=== PATIENT | female | born 1940 | race Caucasian/White ===

== ENCOUNTER 2021-09-21 08:00 | Day surgery (SDC) | payer BC, SELFPAY ==
[2021-09-14 15:43] VITALS: BMI 19.1
--- NOTE | 2021-09-17 12:54 | MHC.SHP ---
Pre-Procedural Eval Section A Date of Service: 09/17/21 The patient is an INPATIENT: No Changes since office visit: No Cold of Flu in the past 2 weeks, No New Medical Problems, No Changes in Medication and No Patient answered all questions The History & Physical has been completed within 30 days and I have reviewed it.: Yes Section B Chief Complaint: cataract right eye Allergies: Allergies Allergy/AdvReac Type Severity Reaction Status Date / Time bee pollen [BEE STINGS] Allergy Severe ANAPHYLAXIS Verified 09/14/21 15:47 Plan Diagnosis/Plan: Unchanged I have reviewed the history and physical and performed a pertinent physical examination on my patient. No changes have occurred unless specified.
[2021-09-21 08:58] VITALS: BP 171/63; PULSE 67; RESP 18; TEMP 36.3; O2SAT 96
--- NOTE | 2021-09-21 09:07 | HO.ANESPROP2 ---
HPI - Anesthesia Eval Consult details Narrative: Right Eye Cataract [facility] Past Medical History Medical History (Updated 09/14/21 @ 15:42 by Jessica Howe RN) COVID-19 vaccine series completed Elevated cholesterol HTN (hypertension) Family History Family history of problems with anesthesia: No Surgical History Surgical History (Updated 09/14/21 @ 15:42 by Jessica Howe RN) H/O colonoscopy Hx of appendectomy History of Problems with Anesthesia: No Social History Social History Are you a primary resident care manager to a significant other at home: No Do you presently have visiting nurse or other home services: No Patient Tobacco Use Status: Never used Tobacco Use of substances other than those prescribed or required for medical reasons: No Have you been hit, kicked, punched, or otherwise hurt by someone within the past year? If so, by whom?: No Are you DNR?: No Advance Directives: No Advance Directives Information Provided: Yes Advance Directives on File: No Recently lost weight without trying: No Eating poorly because of decreased appetite: No Nutrition Risks: Surgical patient >75years Poor oral hygiene: No Meds Allergies Allergy/AdvReac Type Severity Reaction Status Date / Time bee pollen [BEE STINGS] Allergy Severe ANAPHYLAXIS Verified 09/14/21 15:47 Active Medications: Current Medications Cyclopentolate HCl (Cyclopentolate 1 % Ophth Jigna 2 Ml Drpbtl) 1 drop EYE-RIGHT Q5M [facility] Stop: 09/21/21 09:11 Lactated Ringer's (Lr) 500 mls @ 50 mls/hr IVCONT .Q10H [facility] Ketorolac Tromethamine (Ketorolac Tromethamine 0.5% Op 3 Ml Drops) 1 drop EYE-RIGHT Q5M [facility] Stop: 09/21/21 09:11 Moxifloxacin HCl (Moxifloxacin Hcl 0.5 % Oph Jigna 3 Ml Drpbtl) 1 drop EYE-RIGHT POSTOP ONE Stop: 09/21/21 08:59 Phenylephrine HCl (Phenylephrine Hcl 2.5% Oph Jigna 2 Ml Bottle) 1 drop EYE-RIGHT Q5M [facility] Stop: 09/21/21 09:11 Povidone Iodine (Povidone Iodine 5 % Ophth Soln 30 Ml Bottle) 1 appl EYE-RIGHT PREOP PRN PRN Reason: Pre-Op Surgical Implant Prophy Tetracaine HCl (Tetracaine Hcl/Pf 0.5% Oph Jigna 4 Ml Drops) 1 drop EYE-RIGHT PREOP ONE Stop: 09/21/21 08:59 Triamcinolone Acetonide (Triamcinolone Acetonide 40 Mg/Ml Vial) 40 mg IM POSTOP ONE Stop: 09/21/21 08:59 Tropicamide (Tropicamide 1 % Ophth Jigna 3 Ml Btl) 1 drop EYE-RIGHT Q5M PRETTY Stop: 09/21/21 09:11 Home Medications Medication Instructions Recorded Confirmed Last Taken Type amlodipine 5 mg-benazepril 20 mg 1 cap PO DAILY 09/14/21 09/14/21 Unknown History capsule simvastatin 20 mg tablet 1 tab PO BEDTIME 09/14/21 09/14/21 Unknown History Exam Exam Date and Time: September 21, [id number] Height,Weight and Vital Signs: Height 5 ft 1.5 in Weight 46.72 kg Airway Mallampati Class: II TM Dist: >3cm Neck ROM: Full Loose/Missing/Broken Teeth: No Heart: rrr+s1s2 Lungs: cta b/l Assessment and Plan Assessment Anesthesia Assessment: Anesthesia Plan Discussed and Chart Reviewed Final Anesthetic Review Family History of Problems with Anesthesia: No History of Problems with Anesthesia: No NPO: Yes ASA Class: II Final Preanesthetic Review: No Changes in Pt Med Stat, Meds/Allgs Chart Reviewed, Consent Obtained/Reviewed and Anes Risks/Benef Reviewed Patient Risk: Intermediate Procedure Risk: Low Assessment/Block/Sedation in SS: Assess/Block/Sedation-SS Anesthetic Plan Anesthetic Plan: MAC: and Agree w/ Assess. and Plan Disposition: Standard PACU
[2021-09-21] MEDS: Tetracaine HCl/PF 0.5% Oph Sol 4 ML DROPS 1 DROP EYE-RIGHT (09:10)
[2021-09-21] MEDS: Tropicamide 1 % Ophth Sol 3 ML BTL 1 DROP EYE-RIGHT ×3 (09:11→09:22)
[2021-09-21] MEDS: Phenylephrine HCL 2.5% Oph SoL 2 ML BOTTLE 1 DROP EYE-RIGHT ×3 (09:16→09:23)
[2021-09-21] MEDS: Lactated Ringers 500 ML 50 ML IVCONT (09:16)
--- NOTE | 2021-09-21 10:14 | HO.PNOPHT ---
Ophthalmology Procedure Procedure Date of Service: 09/21/21 Ophthalmology Viscoelastic: Healmery Duet Dual Pack Pro Ophthalmology Lenses: TECNIS [id number] (23.5) Procedure Notes: PREOPERATIVE DIAGNOSIS: Decreased visual acuity right eye secondary to cataract POSTOPERATIVE DIAGNOSIS: Same PROCEDURE: Right cataract extraction with intraocular lens insertion SURGEON: Ángel Combs M.D. ANESTHESIA: Topical/MAC ESTIMATED BLOOD LOSS: None COMPLICATIONS: None After obtaining informed consent, the patient was brought to the operating room suite and placed in the supine position. After adequate sedation per anesthesia, topical drops of Tetracaine were given to the right eye. The eye was then prepped and draped in the usual sterile fashion. The operating room microscope was then positioned over the operative eye and a lid speculum placed. A paracentesis was created. Viscoelastic was then instilled into the anterior chamber. A three plane incision was then created temporally, utilizing a 2.85 mm keratome. Capsulotomy forceps were then utilized to create a circular tear capsulotomy. Hydrodissection and hydrodelineation were carried out until adequate mobilization of the nucleus occurred. Phacoemulsification was then utilized to remove the dense central nucleus followed by removal of the cortical material utilizing the automated aspiration irrigation unit. Viscoelastic was instilled into the posterior capsular bag followed by placement of a posterior chamber intraocular lens without difficulty. The residual Viscoelastic was then removed utilizing the automated IA machine. The wound was checked and found to be watertight. The patient tolerated the procedure well and the lid speculum was removed. Intracameral injection of Vigamox 0.1 mL followed by a subtenon injection of Kenalog-40 0.2 mL were administered. The patient will be seen in the a.m.
[2021-09-21 10:43] VITALS: BP 156/76; PULSE 74; RESP 17; TEMP 36.2; O2SAT 99
== END 2021-09-21 10:47 | disposition home or self-care (01) ==
PROVIDERS: PCP Nurse Practitioner Family; Visit Provider Ophthalmology
PROC: (CPT 66985; principal; 2021-09-21 10:00)
DX: H25.11 Age-related nuclear cataract, right eye (principal); H52.4 Presbyopia; Z83.511 Family history of glaucoma; D31.31 Benign neoplasm of right choroid; I10 Essential (primary) hypertension; E78.00 Pure hypercholesterolemia, unspecified; Z79.82 Long term (current) use of aspirin; Z79.899 Other long term (current) drug therapy
CPT/HCPCS: 66984; J2250; J3010; J3300; V2632

== ENCOUNTER 2021-10-05 08:12 | Day surgery (SDC) | payer MEDICARE, SELFPAY ==
[2021-09-14 15:47] VITALS: BMI 19.1
--- NOTE | 2021-10-02 09:18 | P.CONAN_ITS ---
Documented by User: Guadalupe Romano NP 10/02/21 09:20 HPI - Anesthesia Eval Consult details Narrative: 81yo F for Left Cataract Extraction IOL Insertion PCP cleared Right eye 09/21/21 with MAC: Fent 50, Midaz 1 PMFSH Past Medical History Medical History (Updated 09/14/21 @ 15:42 by Jessica Howe RN) COVID-19 vaccine series completed Elevated cholesterol HTN (hypertension) Family History Family history of problems with anesthesia: No Surgical History Surgical History (Updated 09/14/21 @ 15:42 by Jessica Howe RN) H/O colonoscopy Hx of appendectomy History of Problems with Anesthesia: No Social History Social History Are you a primary laboratory animal care veterinarian to a significant other at home: No Do you presently have visiting nurse or other home services: No Patient Tobacco Use Status: Never used Tobacco Use of substances other than those prescribed or required for medical reasons: No Have you been hit, kicked, punched, or otherwise hurt by someone within the past year? If so, by whom?: No Are you DNR?: No Advance Directives: No Advance Directives Information Provided: Yes Advance Directives on File: No Recently lost weight without trying: No Eating poorly because of decreased appetite: No Nutrition Risks: Surgical patient >75years Poor oral hygiene: No Meds Allergies Allergy/AdvReac Type Severity Reaction Status Date / Time bee pollen [BEE STINGS] Allergy Severe ANAPHYLAXIS Verified 09/14/21 15:47 Home Medications Medication Instructions Recorded Confirmed Last Taken Type amlodipine 5 mg-benazepril 20 mg 1 cap PO DAILY 09/14/21 09/14/21 Unknown History capsule simvastatin 20 mg tablet 1 tab PO BEDTIME 09/14/21 09/14/21 Unknown History Exam Exam Date and Time: October 02, 2021 0918 Height,Weight and Vital Signs: Height 5 ft 1.5 in Weight 46.72 kg Assessment and Plan Assessment Anesthesia Assessment: Chart Reviewed Final Anesthetic Review Family History of Problems with Anesthesia: No History of Problems with Anesthesia: No Documented by User: Ady Jones MD 10/05/21 08:37 [facility] Past Medical History Medical History (Updated 09/14/21 @ 15:42 by Jessica Howe RN) COVID-19 vaccine series completed Elevated cholesterol HTN (hypertension) Surgical History Surgical History (Updated 09/14/21 @ 15:42 by Jessica Howe RN) H/O colonoscopy Hx of appendectomy Social History Social History Are you a primary laboratory animal care veterinarian to a significant other at home: No Do you presently have visiting nurse or other home services: No Patient Tobacco Use Status: Never used Tobacco Use of substances other than those prescribed or required for medical reasons: No Have you been hit, kicked, punched, or otherwise hurt by someone within the past year? If so, by whom?: No Are you DNR?: No Advance Directives: No Advance Directives Information Provided: Yes Advance Directives on File: No Recently lost weight without trying: No Eating poorly because of decreased appetite: No Nutrition Risks: Surgical patient >75years Poor oral hygiene: No Meds Allergies Allergy/AdvReac Type Severity Reaction Status Date / Time bee pollen [BEE STINGS] Allergy Severe ANAPHYLAXIS Verified 09/14/21 15:47 Home Medications Medication Instructions Recorded Confirmed Last Taken Type amlodipine 5 mg-benazepril 20 mg 1 cap PO DAILY 09/14/21 09/14/21 Unknown History capsule simvastatin 20 mg tablet 1 tab PO BEDTIME 09/14/21 09/14/21 Unknown History Exam Airway Mallampati Class: II TM Dist: >3cm Neck ROM: Full Loose/Missing/Broken Teeth: No Heart: rrr+s1s2 Lungs: cta b/l Assessment and Plan Assessment Anesthesia Assessment: Anesthesia Plan Discussed Final Anesthetic Review NPO: Yes ASA Class: II Final Preanesthetic Review: No Changes in Pt Med Stat, Meds/Allgs Chart Reviewed, Consent Obtained/Reviewed and Anes Risks/Benef Reviewed Patient Risk: Low Procedure Risk: Low Anesthetic Plan Anesthetic Plan: MAC: and Agree w/ Assess. and Plan Disposition: Standard PACU
[2021-10-05 09:21] VITALS: BP 153/76; PULSE 68; RESP 16; TEMP 36.3; O2SAT 98
[2021-10-05] MEDS: Tetracaine HCl/PF 0.5% Oph Sol 4 ML DROPS 1 DROP EYE-LEFT (09:28)
[2021-10-05] MEDS: Lactated Ringers 500 ML 50 ML IV (09:28)
[2021-10-05] MEDS: Tropicamide 1 % Ophth Sol 3 ML BTL 1 DROP EYE-LEFT ×3 (09:30→09:36)
[2021-10-05] MEDS: Phenylephrine HCL 2.5% Oph SoL 2 ML BOTTLE 1 DROP EYE-LEFT ×3 (09:32→09:38)
--- NOTE | 2021-10-05 10:09 | HO.PNOPHT ---
Ophthalmology Procedure Procedure Date of Service: 10/05/21 Ophthalmology Viscoelastic: Healon Duet Dual Pack Pro Ophthalmology Lenses: TECNIS [id number] (23.5) Procedure Notes: PREOPERATIVE DIAGNOSIS: Decreased visual acuity left eye secondary to cataract POSTOPERATIVE DIAGNOSIS: Same PROCEDURE: Left cataract extraction with intraocular lens insertion SURGEON: Ángel Combs M.D. ANESTHESIA: Topical/MAC ESTIMATED BLOOD LOSS: None COMPLICATIONS: None After obtaining informed consent, the patient was brought to the operation room suite and placed in the supine position. After adequate sedation per anesthesia, topical drops of Tetracaine were given to the left eye. The eye was then prepped and draped in the usual sterile fashion. The operating room microscope was then positioned over the operative eye and a lid speculum placed. A paracentesis was created. Viscoelastic was then instilled into the anterior chamber. A three plane incision was then created temporally, utilizing a 2.85 mm keratome. Capsulotomy forceps were then utilized to create a circular tear capsulotomy. Hydrodissection and hydrodelineation were carried out until adequate mobilization of the nucleus occurred. Phacoemulsification was then utilized to remove the dense central nucleus followed by removal of the cortical material utilizing the automated aspiration irrigation unit. Viscoat elastic was instilled into the posterior capsular bag followed by placement of a posterior chamber intraocular lens without difficulty. The residual Viscoat elastic was then removed utilizing the automated IA machine. The wound was check and found to be watertight. The patient tolerated the procedure well and the lid speculum was removed. Intracameral injection of Vigamox 0.1 mL followed by a subtenon injection of Kenalog-40 0.2 mL were administered. The patient will be seen in the a.m.
[2021-10-05 10:28] VITALS: BP 135/69; PULSE 70; RESP 16; TEMP 36.3; O2SAT 96
== END 2021-10-05 10:45 | disposition home or self-care (01) ==
PROVIDERS: PCP Nurse Practitioner Family; Visit Provider Ophthalmology
PROC: (CPT 66985; principal; 2021-10-05 10:20)
DX: H25.12 Age-related nuclear cataract, left eye (principal); H52.4 Presbyopia; Z83.511 Family history of glaucoma; I10 Essential (primary) hypertension; E78.00 Pure hypercholesterolemia, unspecified; M85.80 Other specified disorders of bone density and structure, unspecified site; Z79.82 Long term (current) use of aspirin; Z79.899 Other long term (current) drug therapy
CPT/HCPCS: 66984; J2250; J3010; J3300; V2632

== ENCOUNTER 2022-03-01 09:29 | Emergency (ER) | payer MEDICARE, SELFPAY ==
[2022-03-01 09:31] VITALS: BP 171/77; PULSE 100; RESP 19; TEMP 36.6; O2SAT 98; BMI 19.3
--- NOTE | 2022-03-01 11:03 | ED_ITS ---
HPI - General Adult General Chief complaint: General Medical Stated complaint: bloody nose Time Seen by Provider: 03/01/22 10:35 History of Present Illness HPI narrative: Patient complains of nosebleed that started this morning and came to the ER as it did not stop slowly oozing, there is no dizziness no headache no blood thinners On arrival to the ER she was given a piece of gauze an ask to pinch the nose shot Related Data Home Medications Medication Instructions Recorded Confirmed amlodipine 5 mg-benazepril 20 mg 1 cap PO DAILY 09/14/21 09/14/21 capsule simvastatin 20 mg tablet 1 tab PO BEDTIME 09/14/21 09/14/21 Previous Rx's Medication Instructions Recorded oxymetazoline 0.05 % nasal spray 2 spray intranasal Q12H PRN Nose 03/01/22 bleed 3 days #15 mL Allergies Allergy/AdvReac Type Severity Reaction Status Date / Time bee pollen [BEE STINGS] Allergy Severe ANAPHYLAXIS Verified 09/14/21 15:47 Review of Systems Review of Systems: Positive for nose bleed Negatives are no fever no chills no dizziness no weakness no headache no trauma to the nose no bleeding from any other site no bruising no skin rash no recent illness no sinus congestion no cough no runny nose Yes all other systems are reviewed and are negative PMFSH Past Medical History Source: nursing notes reviewed Medical History (Updated 03/01/22 @ 11:05 by BRYANT Yates) COVID-19 vaccine series completed Elevated cholesterol HTN (hypertension) Surgical History (Updated 09/14/21 @ 15:42 by Jessica Howe RN) H/O colonoscopy Hx of appendectomy Social History Social History Are you a primary health care coordinator to a significant other at home: No Do you presently have visiting nurse or other home services: No Patient Tobacco Use Status: Never used Tobacco Advance Directives: Yes Advance Directives Information Provided: No Advance Directives on File: No Physical Exam ED Vital Signs: Vital Signs - 24 hr 03/01/22 09:31 Temperature 98 F Pulse Rate 100 Respiratory Rate 19 Blood Pressure 171/77 H Pulse Oximetry 98 Oxygen Delivery Method Room Air BMI result Body Mass Index 19.3 General appearance no distress The eyes no pallor The nose there is scant drops of blood and some blood on the gauze pad but no significant bleeding after the patient held pressure The pharynx is clear no blood dripping down the back of the throat Neck is supple Respiratory no distress Extremities full range of motion x4 Skin no petechiae and no purpura Course Course Course Narrative: Patient was asked to hold pressure for 10 more minutes in all bleeding. Patient was observed for half an hour after with no bleeding and is discharged Discharge Plan Discharge Clinical Impression: Bleeding nose Patient Disposition: Home, Self-Care Additional Instructions: For 10 minutes Usually nose bleeding can be stopped but pinching the nostrils shut If bleeding is not controlled with 10 minutes of pressure you can spray 2 sprays of Oxy mirtazapine, Afrin up the nose do not breathe it deep but supposed to stay in the front part of the nose You can also put it on a piece of gauze or Kleenex or cotton and spray onto the cotton ball and put it in the nose and then pressed tight so that the fluid is absorbed and it will slow down or stop bleeding Return to the ER any time for uncontrolled bleeding dizziness weakness any worse condition or any concerns Prescriptions: New oxymetazoline 0.05 % spray,non-aerosol 2 spray intranasal Q12H PRN (Reason: Nose bleed) 3 Days Qty: 15 0RF No Action amlodipine-benazepril 5-20 mg capsule 1 cap PO DAILY simvastatin 20 mg tablet 1 tab PO BEDTIME
== END 2022-03-01 11:58 | disposition home or self-care (01) ==
PROVIDERS: Emergency Provider Emergency Medicine; PCP Nurse Practitioner Family
DX: R04.0 Epistaxis (principal); E78.00 Pure hypercholesterolemia, unspecified; I10 Essential (primary) hypertension
CPT/HCPCS: 99282; 99283